=== PATIENT | female | born 1955 | race Hispanic/Latino ===

== ENCOUNTER 2020-06-12 16:45 | Emergency (ER) | payer MEDICARE ==
[~2020-06-12] VITALS: Ht 162.6 cm; Wt 66.2 kg
[~2020-06-12 16:45] MED LIST changes: -ACETAMINOPHEN/CODEINE 300MG - 30MG TAB ONE; -B&O 60MG R/S 60 MG SUPP PR ONE; -GENTAMICIN 80MG/NS 100 ML 200 ML IV ONE; -IOPAMIDOL 300MG/ML 50ML INFUS..BTL IV ONE
[2020-06-12] MEDS ORDERED: HYDROCODONE/APAP 7.5MG-325MG 1 EA TAB PO ONE (17:30)
[2020-06-12 20:02] VITALS: BP 122/59
== END 2020-06-12 20:05 | disposition home or self-care (01) ==
LOC: ER 16:47
DX: R10.13 Epigastric pain (principal); R07.89 Other chest pain; E78.5 Hyperlipidemia, unspecified; R94.31 Abnormal electrocardiogram [ECG] [EKG]
CPT/HCPCS: 71046; 72110; 93005; 99283

== ENCOUNTER → 2020-06-12 | Day surgery (SDC) | payer MEDICARE ==
[2020-06-07 12:04] LABS: BASOPHILS % 0.7 % (0.0-1.0); EOSINOPHILS # (AUTO) 0.3 (0.0-0.4); EOSINOPHILS % 4.7 % (0.0-6.0); HEMATOCRIT 38.1 % (38.2-49.6); HEMOGLOBIN 12.3 g/dL (14.0-18.0); LYMPHOCYTES # (AUTO) 2.5 (1.0-3.2); LYMPHOCYTES % 46.1 % (18.0-39.1); MEAN CORPUSCULAR HEMOGLOBIN 31.5 pg (28-32); MEAN CORPUSCULAR HGB CONC 32.3 g/dL (31-35); MEAN CORPUSCULAR VOLUME 97.7 fL (81-99); MONOCYTES # (AUTO) 0.4 (0.2-0.8); MONOCYTES % 8.2 % (4.4-11.3); NEUTROPHILS # (AUTO) 2.1 (2.1-6.9); NEUTROPHILS % 40.1 % (38.7-80.0); PLATELET COUNT 227 x10e3/uL (140-360); RED CELL DISTRIBUTION WIDTH 12.7 % (11.7-14.4)
[2020-06-07 12:26] LABS: ANION GAP 12.3 mmol/L (8-16); BLOOD UREA NITROGEN 11 mg/dL (7-26); BUN/CREATININE RATIO 16 (6-25); CALCIUM 9.1 mg/dL (8.4-10.2); CARBON DIOXIDE 27 mmol/L (22-29); CHLORIDE 107 mmol/L (98-107); CREATININE, SERUM 0.68 mg/dL (0.57-1.11); EST GLOMERULAR FILTRATION RATE > 60 ML/MIN (60-); GLUCOSE 93 mg/dL (74-118); POTASSIUM 4.3 mmol/L (3.5-5.1); SODIUM 142 mmol/L (136-145)
[~2020-06-12] MED LIST: ACETAMINOPHEN/CODEINE 300MG - 30MG TAB ONE; B&O 60MG R/S 60 MG SUPP PR ONE; CRESTOR10 MG PO; GENTAMICIN 80MG/NS 100 ML 200 ML IV ONE; IOPAMIDOL 300MG/ML 50ML INFUS..BTL IV ONE; OXYBUTYNIN CHLOR5 M1 PO; SERTRALINE HCL50 MG PO; TRAZODONE HCL50 MG PO
[2020-06-12 14:00] VITALS: BP 132/71
== END | disposition home or self-care (01) ==
LOC: OR 08:35 → EDSEX 11:30
PROVIDERS: ATTEND Urology
DX: N39.0 Urinary tract infection, site not specified (principal); N35.92 Unspecified urethral stricture, female; N81.10 Cystocele, unspecified; N36.41 Hypermobility of urethra; N95.2 Postmenopausal atrophic vaginitis; N32.89 Other specified disorders of bladder; I10 Essential (primary) hypertension; E11.9 Type 2 diabetes mellitus without complications; E78.5 Hyperlipidemia, unspecified; M19.90 Unspecified osteoarthritis, unspecified site; I69.839 Monoplegia of upper limb following other cerebrovascular disease affecting unspecified side; Z01.810 Encounter for preprocedural cardiovascular examination; Z01.812 Encounter for preprocedural laboratory examination; Z01.818 Encounter for other preprocedural examination; Z20.822 Contact with and (suspected) exposure to COVID-19
CPT/HCPCS: 36415; 52281; 71046; 74420; 80048; 85025; 93005; C1758; J1580; Q9967; U0002